=== PATIENT | male | born 1970 | race Caucasian/White ===

== ENCOUNTER 2019-03-22 21:16 | Emergency (ER) | payer OTHER ==
[~2019-03-22] VITALS: Ht 200.7 cm; Wt 90.7 kg
[2019-03-22] MEDS ORDERED: AMLO5 PO (21:36)
[2019-03-22 21:53] LABS: BASOPHILS ABSOLUTE AUTO 0.06 K/mm3 (0.00-0.23); BASOPHILS PERCENT AUTO 1 % (0-2); EOSINOPHILS ABSOLUTE AUTO 0.29 K/mm3 (0.00-0.68); EOSINOPHILS PERCENT AUTO 4 % (0-6); Hematocrit 43.4 % (37.0-53.0); Hemoglobin 14.5 g/dL (13.5-17.5); IMMATURE GRAN ABSOLUTE AUTO 0.02 K/mm3 (0.00-0.10); IMMATURE GRAN PERCENT AUTO 0 % (0-1); LYMPHOCYTES ABSOLUTE AUTO 2.27 K/mm3 (0.84-5.20); LYMPHOCYTES PERCENT AUTO 30 % (21-46); MONOCYTES ABSOLUTE AUTO 0.72 K/mm3 (0.16-1.47); MONOCYTES PERCENT AUTO 10 % (4-13); Mean Corpuscular HGB Conc 33.4 g/dL (31.5-36.5); Mean Corpuscular Volume 93 fL (80-100); Mean Platelet Volume 10.2 fL (9.1-12.4); NEUTROPHILS ABSOLUTE AUTO 4.16 K/mm3 (1.96-9.15); NEUTROPHILS PERCENT AUTO 55 % (41-73); Platelet Count 298 K/mm3 (150-400); RDW Coefficient Variation 12.4 % (11.7-14.2); RDW Standard Deviation 42.5 fL (35.1-46.3); Red Blood Cell Count 4.68 M/mm3 (4.30-5.90); White Blood Cell Count 7.52 K/mm3 (4.00-11.30)
[2019-03-22 22:16] LABS: Troponin I <0.015 ng/mL (0.000-0.040)
[2019-03-22 22:17] LABS: Alanine Aminotransfer (ALT/SGP 65 U/L (12-78); Albumin, Blood 3.8 g/dL (3.4-5.0); Alk Phos 105 U/L (50-136); Anion Gap 6 mmol/L (6-16); Aspartate Aminotrans (AST/SGOT 30 U/L (12-37); Bilirubin, Total 0.4 mg/dL (0.1-1.0); Blood Urea Nitrogen 17 mg/dL (8-24); Bun/Creatinine Ratio 20.5 (12.0-20.0); CO2, Blood 30 mmol/L (21-32); Calcium, Blood 9.3 mg/dL (8.5-10.1); Chloride, Blood 105 mmol/L (98-108); Creatinine, Blood 0.83 mg/dL (0.60-1.20); Globulin, Blood 3.9 g/dL (2.2-4.0); Glomerular Filtration Rate >60 (60-); Glucose, Blood 101 mg/dL (70-99); Potassium, Blood 3.9 mmol/L (3.5-5.5); Sodium, Blood 141 mmol/L (136-145); Total Protein, Blood 7.7 g/dL (6.4-8.2)
== END 2019-03-23 00:05 | disposition home or self-care (01) ==
LOC: ER 21:16
PROVIDERS: Emergency Medicine
DX: R07.9 Chest pain, unspecified (principal); K44.9 Diaphragmatic hernia without obstruction or gangrene; I10 Essential (primary) hypertension; G47.30 Sleep apnea, unspecified; Z79.899 Other long term (current) drug therapy
CPT/HCPCS: 36415; 71046; 80053; 84484; 85025; 93005; 93010; 99284-25

== ENCOUNTER 2019-06-27 08:38 | Day surgery (SDC) | payer OTHER ==
[~2019-06-27 08:38] MED LIST: AMLO5 PO
--- NOTE | 2019-06-27 09:26 | NUR ---
PT AMBULATED INTO STEP. BASELINE VS AND ECG OBTAINED. HR TRENDING 70-80'S AT THAT TIME.METOPROLOL 5 MG IVP X 3 GIVEN AND HR STILL>62. IN ADDITION, SUSPECT THAT PT GOING IN AND OUT OF AFIB. 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 [address] ACOSTA NOTIFIED.
--- NOTE | 2019-06-27 09:46 | NUR ---
DR. ACOSTA OFFICE NOTIFIED OF PT HR AND POSSIBLE INTERMITTENT AFIB. APPOINTMENT SCHEDULED WITH FOR TODAY @1230. 12 LEAD ECG, RYHTHYM STRIP RECORD, AND VS SENT WITH PT. REVIEWED INSTRUCTIONS TO FOLLOW UP WITH @1230 TODAY WITH PT AND HIS SPOUSE KADE-BOTH VERBALIZE AGREEMENT AND UNDERSTANDING.
== END 2019-06-27 23:09 | disposition home or self-care (01) ==
LOC: CT 08:38 → ORD 08:38 → CT 09:00 → ORD 23:09
DX: R07.9 Chest pain, unspecified (principal); I48.91 Unspecified atrial fibrillation; I10 Essential (primary) hypertension; G47.33 Obstructive sleep apnea (adult) (pediatric); Z53.09 Procedure and treatment not carried out because of other contraindication; Z79.899 Other long term (current) drug therapy
CPT/HCPCS: 93005; 93010

== ENCOUNTER → 2019-09-27 | Outpatient (CLI) | payer OTHER | END | disposition home or self-care (01) | LOC: LAB SHORT 09:37 → LAB EV 09:37 | DX: M25.571 Pain in right ankle and joints of right foot (principal) | CPT/HCPCS: 84550 ==

== ENCOUNTER → 2022-05-18 | Outpatient (CLI) | payer OTHER ==
[2022-05-18 11:52] LABS: BASOPHILS ABSOLUTE AUTO 0.04 K/mm3 (0.00-0.23); BASOPHILS PERCENT AUTO 0 % (0-2); EOSINOPHILS ABSOLUTE AUTO 0.24 K/mm3 (0.00-0.68); EOSINOPHILS PERCENT AUTO 2 % (0-6); Hemoglobin 14.4 g/dL (13.5-17.5); IMMATURE GRAN ABSOLUTE AUTO 0.04 K/mm3 (0.00-0.10); IMMATURE GRAN PERCENT AUTO 0 % (0-1); LYMPHOCYTES ABSOLUTE AUTO 0.96 K/mm3 (0.84-5.20); LYMPHOCYTES PERCENT AUTO 9 % (21-46); MONOCYTES ABSOLUTE AUTO 0.77 K/mm3 (0.16-1.47); MONOCYTES PERCENT AUTO 7 % (4-13); Mean Corpuscular HGB 31.6 pg (26.0-34.0); Mean Corpuscular HGB Conc 33.5 g/dL (31.5-36.5); Mean Corpuscular Volume 95 fL (80-100); Mean Platelet Volume 10.1 fL (9.1-12.4); NEUTROPHILS ABSOLUTE AUTO 9.18 K/mm3 (1.96-9.15); NEUTROPHILS PERCENT AUTO 82 % (41-73); Platelet Count 302 K/mm3 (150-400); RDW Coefficient Variation 13.1 % (11.7-14.2); RDW Standard Deviation 45.4 fL (35.1-46.3); Red Blood Cell Count 4.55 M/mm3 (4.30-5.90); White Blood Cell Count 11.23 K/mm3 (4.00-11.30)
[2022-05-18 12:14] LABS: Albumin, Blood 3.9 g/dL (3.4-5.0); Bilirubin, Total 0.8 mg/dL (0.1-1.0); Bun/Creatinine Ratio 16.5 (12.0-20.0); Creatinine, Blood 0.79 mg/dL (0.60-1.20); Globulin, Blood 4.1 g/dL (2.2-4.0); Magnesium, Blood 1.9 mg/dL (1.6-2.4); Potassium, Blood 3.7 mmol/L (3.5-5.5)
== END | disposition home or self-care (01) ==
LOC: LAB 11:25 → LAB SHORT 11:25
PROVIDERS: Nurse Practitioner Family
DX: R00.0 Tachycardia, unspecified (principal); R06.02 Shortness of breath; R25.2 Cramp and spasm
CPT/HCPCS: 80053; 83735; 85025

== ENCOUNTER 2023-02-10 23:42 | Observation (INO) | payer OTHER ==
[~2023-02-10] VITALS: Ht 170.2 cm; Wt 96.4 kg
[2023-02-11] VITALS (25 sets, daily range): BP systolic 94–165; BP diastolic 64–148
[2023-02-11] MEDS ORDERED: FURO20 PO (00:31)
[2023-02-11] MEDS ORDERED: LOSA50 PO ×2 (00:31→16:37)
[2023-02-11] MEDS ORDERED: METO50ER PO ×2 (00:31→16:38)
[2023-02-11] MEDS ORDERED: ALLO100 PO (00:32)
[2023-02-11 00:45] LABS: BASOPHILS ABSOLUTE AUTO 0.06 K/mm3 (0.00-0.23); BASOPHILS PERCENT AUTO 1 % (0-2); EOSINOPHILS ABSOLUTE AUTO 0.23 K/mm3 (0.00-0.68); EOSINOPHILS PERCENT AUTO 4 % (0-6); Hematocrit 48.7 % (37.0-53.0); Hemoglobin 15.5 g/dL (13.5-17.5); IMMATURE GRAN ABSOLUTE AUTO 0.03 K/mm3 (0.00-0.10); IMMATURE GRAN PERCENT AUTO 1 % (0-1); LYMPHOCYTES ABSOLUTE AUTO 2.42 K/mm3 (0.84-5.20); LYMPHOCYTES PERCENT AUTO 37 % (21-46); MONOCYTES ABSOLUTE AUTO 0.64 K/mm3 (0.16-1.47); MONOCYTES PERCENT AUTO 10 % (4-13); Mean Corpuscular HGB 31.3 pg (26.0-34.0); Mean Corpuscular HGB Conc 31.8 g/dL (31.5-36.5); Mean Corpuscular Volume 98 fL (80-100); Mean Platelet Volume 10.1 fL (9.1-12.4); NEUTROPHILS ABSOLUTE AUTO 3.09 K/mm3 (1.96-9.15); NEUTROPHILS PERCENT AUTO 48 % (41-73); Platelet Count 297 K/mm3 (150-400); RDW Coefficient Variation 13.1 % (11.7-14.2); RDW Standard Deviation 47.2 fL (35.1-46.3); Red Blood Cell Count 4.95 M/mm3 (4.30-5.90); White Blood Cell Count 6.47 K/mm3 (4.00-11.30)
[2023-02-11 01:04] LABS: Albumin, Blood 3.8 g/dL (3.4-5.0); Albumin/Globulin Ratio 0.8 (0.8-1.8); Bilirubin, Total 0.3 mg/dL (0.1-1.0); Bun/Creatinine Ratio 26.7 (12.0-20.0); Calcium, Blood 9.1 mg/dL (8.5-10.1); Creatinine, Blood 0.52 mg/dL (0.60-1.20); Globulin, Blood 4.5 g/dL (2.2-4.0); Total Protein, Blood 8.3 g/dL (6.4-8.2)
[2023-02-11 02:50] LABS: Magnesium, Blood 2.2 mg/dL (1.6-2.4); Thyroid Stimulating Hormone 2.58 uIU/mL (0.360-4.800)
--- NOTE | 2023-02-11 06:18 | NUR ---
SHIFT SUMMARY / ADMIT PT TO [facility]. AXO4. INDEPENDENT. ON DILT GTT @15MG/HR. HR 120'S. ASYMPTOMATIC. WALKED INTO BED. UPDATED ON PLAN OF CARE. 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 ONCE SITUATED IN BED. VSS, HRB 90-100, DILT GTT TITRATED TO 10MG/HR. PT REQUESTING TO HOLD OFF ON MAG / POTASSIUM / IV FLUIDS UNTIL EFM DOCTOR ARRIVES. PT ADMISSION COMPLETE. UPDATED TO ROOM, CALL LIGHT, AND GENERAL UNIT FLOW.
[2023-02-11 07:36] LABS: Source, Urine Clean Catch
[2023-02-11 07:43] LABS: Appearance, Urine Clear (Clear); Bilirubin, Urine Neg (Neg); Blood, Urine Neg (Neg); Color, Urine Yellow (P-Yellow); Glucose Qualitative, Urine Neg (Neg); Ketones, Urine Neg (Neg); Leukocyte Esterase, Urine Neg (Neg); Nitrite, Urine Neg (Neg); Protein, Urine 2+ (Neg); Specific Gravity, Urine 1.025 (1.003-1.022); Urobilinogen, Urine NORM (Normal)
[2023-02-11 07:56] LABS: Bacteria Not Seen /hpf; Mucus Mod (0-Heavy); Red Blood Cells, Urine Not Seen /hpf (0-2); Squamous Epithelial Cells Rare /hpf (Few); White Blood Cells, Urine Not Seen /hpf (0-5)
--- NOTE | 2023-02-11 09:38 | NUR ---
PT A/O X4, PLEASANT AND COOPERATIVE WITH CARE. PT INDEPENDENT IN ROOM. PT SPO2 >92% ON RA. RESPIRATIONS ARE EVEN AND UNLABORED. LUNGS ARE CLEAR T/O. PT HR REMAINS 90-120'S, AFIB RHYTHM ON THE MONITOR. PT REPORTS FEELING PALPITATIONS AND SOB WHEN HR INCREASES, BUT DENIES SYMPTOMS WHEN RATE IS LOWER. PT DILTIAZEM DRIP CURRENTLY INFUSING AT 10/HR. BP IS STABLE WITH SBP IN 120'S. PT HAS MILD EDEMA ON THE LLE, STATES THIS IS NORMAL FOR HIM. CARDIOLOGY WAS CONSULTED BY [facility].
[2023-02-11 10:01] LABS: BASOPHILS ABSOLUTE AUTO 0.05 K/mm3 (0.00-0.23); BASOPHILS PERCENT AUTO 1 % (0-2); EOSINOPHILS ABSOLUTE AUTO 0.25 K/mm3 (0.00-0.68); EOSINOPHILS PERCENT AUTO 3 % (0-6); Hematocrit 42.3 % (37.0-53.0); Hemoglobin 14.3 g/dL (13.5-17.5); IMMATURE GRAN ABSOLUTE AUTO 0.03 K/mm3 (0.00-0.10); IMMATURE GRAN PERCENT AUTO 0 % (0-1); LYMPHOCYTES ABSOLUTE AUTO 2.08 K/mm3 (0.84-5.20); LYMPHOCYTES PERCENT AUTO 25 % (21-46); MONOCYTES ABSOLUTE AUTO 0.75 K/mm3 (0.16-1.47); MONOCYTES PERCENT AUTO 9 % (4-13); Mean Corpuscular HGB 31.2 pg (26.0-34.0); Mean Corpuscular HGB Conc 33.8 g/dL (31.5-36.5); Mean Platelet Volume 10.1 fL (9.1-12.4); NEUTROPHILS ABSOLUTE AUTO 5.02 K/mm3 (1.96-9.15); NEUTROPHILS PERCENT AUTO 61 % (41-73); Platelet Count 314 K/mm3 (150-400); RDW Coefficient Variation 13.1 % (11.7-14.2); RDW Standard Deviation 44.4 fL (35.1-46.3); Red Blood Cell Count 4.58 M/mm3 (4.30-5.90); White Blood Cell Count 8.18 K/mm3 (4.00-11.30)
[2023-02-11 10:20] LABS: CPK Creatine Kinase 97 U/L (39-308)
[2023-02-11 10:22] LABS: Albumin, Blood 3.7 g/dL (3.4-5.0); Bilirubin, Total 0.4 mg/dL (0.1-1.0); Bun/Creatinine Ratio 19.6 (12.0-20.0); Calcium, Blood 9.2 mg/dL (8.5-10.1); Creatinine, Blood 0.72 mg/dL (0.60-1.20); Globulin, Blood 3.8 g/dL (2.2-4.0); Potassium, Blood 3.4 mmol/L (3.5-5.5); Total Protein, Blood 7.5 g/dL (6.4-8.2)
[2023-02-11 10:26] LABS: Mean Corpuscular Volume 92 fL (80-100)
[2023-02-11 13:47] LABS: International Normalized Ratio 0.95
[2023-02-11 13:48] LABS: Anti-Xa UFH, PHA Monitoring 0.22 IU/mL
[2023-02-11 14:10] LABS: Cholesterol 179 mg/dL (50-200); HDL Cholesterol 45 mg/dL (>39); Low Density Lipoprotein Chol 91 mg/dL (0-110); Triglycerides 215 mg/dL (30-160); Very Low Density Lipoprot Chol 43 mg/dL (6-32)
[2023-02-11] MEDS ORDERED: ELIQUIS5 M2 PO (16:38)
--- NOTE | 2023-02-11 17:42 | NUR ---
SHIFT SUMMARY/DISCHARGE SEE PREVIOUS NOTE FOR UPDATE. [facility]AK[facility] TO [facility] FOR [facility]ARDI[facility]ERSION WITH ETHAN. PT WAS SUCCESSFULY CARDIOVERTED WITH ONE SHOCK AND WAS IN SINUS RHYTHM IN THE 70'S WHEN HE RETURNED FROM [facility]IL[facility]. PT A/O X4. VITAL SIGNS ARE STABLE. PT REMAINS AT BEDSIDE. PT ABLE TO AMBULATE INDEPENDENTLY AND STEADY ON HIS FEET. PT DISHARGED @ APPROX 1715. PT AMBULATED OUT OF ROOM WITH AND DECLINED WHEELCHAIR. IV'S D/C'D WITH TIPS INTACT.
== END 2023-02-11 17:23 | disposition home or self-care (01) ==
LOC: ER 23:42 → PCU 23:43
PROVIDERS: Internal Medicine Cardiovascular Disease; Student in an Organized Health Care Education/Training Program; ADMIT Internal Medicine
DX: I48.91 Unspecified atrial fibrillation (principal); G47.33 Obstructive sleep apnea (adult) (pediatric); I10 Essential (primary) hypertension; E66.9 Obesity, unspecified; I87.2 Venous insufficiency (chronic) (peripheral)
CPT/HCPCS: 36415; 71046; 80053; 80061; 81001; 82550; 83735; 83880; 84443; 84484; 85025; 85520; 85610; 85730; 93005; 93010; 93306; 93312; 93325; 93971; 96365; 96366; 96372; 96376; 99285-25; A9270; G0378; J1644; J1650; J2250; J2704; J2765; J3475; J3480; J7120